=== PATIENT | male | born 1970 | race Two or more races ===

== ENCOUNTER 2016-04-21 10:28 | Inpatient (IN) | payer MEDICARE, MEDICAID ==
[~2016-04-21 10:28] MED LIST: ACETAMINOPHEN500 M4 PO; ANTIBIOTIC PO; ATIVAN1 M2 PO; CALCIUM 500 +1 EAC8 PO; CALCIUM500 M3 PO; CARAFATE1 GM/10 M1 PO; CLEOCIN HCL300 M1 PO; EES PO; FLUOXETINE PO; HUMALOG100 UNITS/ SC; HYDROXYZINE HCL50 M1 PO; IMODIUM A-D2 M3 PO; KEFLEX500 M4 PO; LEVEMIR100 UNITS/ SC; LIPITOR20 M1 PO; LISINOPRIL40 M1 PO; METOPROLOL SUCC50 M1 PO; MUPIROCIN22 G2 TP; NORVASC2.5 M1 PO; NOVASOURCE REN237 ML; NOVOLOG FL100 UNIT/2; NOVOLOG100 UNITS/ SC; NUTREN 2.0250 ML PEG; OLANZAPINE PO; OS-CAL 500+D31 EAC1; OXYCODONE HCL5 M1 PO; PANTOPRAZOLE SO40 M3 PO; PLAVIX75 M1 PO; PROZAC20 M3 PO; RENAL VITAMIN0.8 MG PO; RENVELA; RENVELA800 M1 PO; SCOPOLAMINE; SODIUM BICARBO650 M1 PO; VANCO 500500 MG/100; ZOFRAN4 M2 PO; ZYPREXA; ZYPREXA5 M1 PO; ZYPREXA7.5 M1 PO; [UNRECOGNIZED DRUG - OTHER] PO
[2016-04-21 12:40] LABS: BASO % 0.2 % (0-2); EOS % 0.7 % (0-7); EOSINOPHIL ABSOLUTE COUNT 0.1 tho/cmm (0.0-0.7); HCT-HEMATOCRIT 36.8 % (36.0-53.5); HGB-HEMOGLOBIN 12.2 gm/dl (13.5-17.0); IMMATURE GRANULOCYTES ABSOLUTE 0.13 tho/cmm (0-0.03); IMMATURE GRANULOCYTES PERCENT 0.7 % (0-0.3); LYMPH % 9.2 % (20-45); LYMPH ABSOLUTE COUNT 1.7 tho/cmm (0.8-4.5); MCH (MEAN CORPUSCULAR HGB) 31.7 pg (28.0-32.0); MCHC MEAN CORPUSCULAR HGB CONC 33.2 % (32.0-36.0); MCV (MEAN CELL VOLUME) 95.6 fl (82.0-96.0); MEAN PLATELET VOLUME 9.4 cmc (9.4-12.4); MONO % 5.2 % (0-12); MONOCYTE ABSOLUTE COUNT 0.9 tho/cmm (0.0-1.2); PLATELET COUNT 393 tho/cmm (150-450); RED BLOOD COUNT 3.85 mil/cmm (4.40-5.70); RED CELL DISTRIBUTION WIDTH 14.1 % (12.4-16.4); WHITE BLOOD COUNT 17.9 tho/cmm (4.0-10.0)
[2016-04-21 13:05] LABS: ALB/GLOB RATIO 0.6 (0.8-2.0); ALBUMIN 2.9 g/dl (3.5-5.0); ALKALINE PHOSPHATASE 117 U/L (33-138); ALT/SGPT 11 U/L (12-78); ANION GAP 12 mmol/L (0-20); AST/SGOT 8 U/L (10-40); BILIRUBIN,TOTAL 0.4 mg/dl (0.0-1.5); BLOOD UREA NITROGEN 25 mg/dl (6-24); CALCIUM 8.9 mg/dl (8.5-10.5); CARBON DIOXIDE-VENOUS 30 mmol/L (22-32); CHLORIDE 100 mmol/l (96-110); CREATININE 7.75 mg/dl (0.60-1.30); GLUCOSE 133 mg/dL (70-110); POTASSIUM 3.9 mmol/L (3.7-5.1); PREALBUMIN 20.4 mg/dl (20.0-40.0); SODIUM 138 mmol/L (135-145); eGFR VALUE FOR BLACK 9 mL/Min
[2016-04-21] MEDS ORDERED: OS-CAL 500+D31 EAC1 PO (13:58)
[2016-04-21] MEDS ORDERED: TYLENOL EXTRA500 M1 PO (14:02)
[2016-04-21] MEDS ORDERED: RENVELA800 M1 PO (14:03)
[2016-04-21] MEDS ORDERED: PROMETHAZINE HC25 M3 PO (14:03)
[2016-04-21] MEDS ORDERED: CALCIUM CARBON500 M2 PO (14:04)
[2016-04-21] MEDS ORDERED: REGLAN5 M1 PO (14:15)
[2016-04-21 15:47] LABS: PROTHROMBIN TIME 11.5 SECONDS (9.0-13.6)
[2016-04-21] MEDS ORDERED: ZINC OXIDE30 G1 TP (16:36)
[2016-04-22 05:42] LABS: BASO % 0.3 % (0-2); EOSINOPHIL ABSOLUTE COUNT 0.3 tho/cmm (0.0-0.7); HCT-HEMATOCRIT 34.9 % (36.0-53.5); HGB-HEMOGLOBIN 11.5 gm/dl (13.5-17.0); IMMATURE GRANULOCYTES ABSOLUTE 0.09 tho/cmm (0-0.03); IMMATURE GRANULOCYTES PERCENT 0.6 % (0-0.3); LYMPH % 18.6 % (20-45); LYMPH ABSOLUTE COUNT 2.6 tho/cmm (0.8-4.5); MCH (MEAN CORPUSCULAR HGB) 31.3 pg (28.0-32.0); MCV (MEAN CELL VOLUME) 95.1 fl (82.0-96.0); MEAN PLATELET VOLUME 9.3 cmc (9.4-12.4); MONO % 6.3 % (0-12); MONOCYTE ABSOLUTE COUNT 0.9 tho/cmm (0.0-1.2); NEUTROPHIL ABSOLUTE COUNT 10.1 tho/cmm (1.6-8.0); NEUTROPHIL-AUTOMATED 10.1 tho/cmm (1.6-8.0); NEUTROPHILS % 72.2 % (40-80); PLATELET COUNT 378 tho/cmm (150-450); RED BLOOD COUNT 3.67 mil/cmm (4.40-5.70); RED CELL DISTRIBUTION WIDTH 13.9 % (12.4-16.4)
[2016-04-22 06:04] LABS: ALBUMIN 2.4 g/dl (3.5-5.0); ANION GAP 15 mmol/L (0-20); BLOOD UREA NITROGEN 32 mg/dl (6-24); CALCIUM 8.5 mg/dl (8.5-10.5); CARBON DIOXIDE-VENOUS 29 mmol/L (22-32); CHLORIDE 98 mmol/l (96-110); GLUCOSE 124 mg/dL (70-110); PHOSPHOROUS 5.2 mg/dl (2.5-4.9); POTASSIUM 3.5 mmol/L (3.7-5.1); SODIUM 138 mmol/L (135-145); eGFR VALUE FOR BLACK 7 mL/Min
[2016-04-22 06:06] LABS: CREATININE 9.71 mg/dl (0.60-1.30)
[2016-04-23 05:53] LABS: BASO % 0.3 % (0-2); BASO ABSOLUTE COUNT 0.1 tho/cmm (0.0-0.2); EOS % 1.2 % (0-7); EOSINOPHIL ABSOLUTE COUNT 0.2 tho/cmm (0.0-0.7); HCT-HEMATOCRIT 35.5 % (36.0-53.5); HGB-HEMOGLOBIN 11.7 gm/dl (13.5-17.0); IMMATURE GRANULOCYTES ABSOLUTE 0.09 tho/cmm (0-0.03); IMMATURE GRANULOCYTES PERCENT 0.5 % (0-0.3); LYMPH % 12.2 % (20-45); LYMPH ABSOLUTE COUNT 2.2 tho/cmm (0.8-4.5); MCH (MEAN CORPUSCULAR HGB) 31.1 pg (28.0-32.0); MCV (MEAN CELL VOLUME) 94.4 fl (82.0-96.0); MEAN PLATELET VOLUME 9.1 cmc (9.4-12.4); MONO % 4.1 % (0-12); MONOCYTE ABSOLUTE COUNT 0.7 tho/cmm (0.0-1.2); NEUTROPHIL ABSOLUTE COUNT 14.5 tho/cmm (1.6-8.0); NEUTROPHIL-AUTOMATED 14.5 tho/cmm (1.6-8.0); NEUTROPHILS % 81.7 % (40-80); PLATELET COUNT 348 tho/cmm (150-450); RED BLOOD COUNT 3.76 mil/cmm (4.40-5.70); WHITE BLOOD COUNT 17.8 tho/cmm (4.0-10.0)
[2016-04-23 06:00] LABS: ANION GAP 13 mmol/L (0-20); BLOOD UREA NITROGEN 16 mg/dl (6-24); CALCIUM 8.3 mg/dl (8.5-10.5); CARBON DIOXIDE-VENOUS 28 mmol/L (22-32); CHLORIDE 101 mmol/l (96-110); GLUCOSE 167 mg/dL (70-110); POTASSIUM 3.5 mmol/L (3.7-5.1); SODIUM 138 mmol/L (135-145); eGFR VALUE FOR BLACK 11 mL/Min
[2016-04-23 06:03] LABS: CREATININE 6.28 mg/dl (0.60-1.30)
[2016-04-24 05:43] LABS: BASO % 0.2 % (0-2); EOS % 2.2 % (0-7); EOSINOPHIL ABSOLUTE COUNT 0.4 tho/cmm (0.0-0.7); HCT-HEMATOCRIT 36.5 % (36.0-53.5); HGB-HEMOGLOBIN 12.1 gm/dl (13.5-17.0); IMMATURE GRANULOCYTES ABSOLUTE 0.08 tho/cmm (0-0.03); IMMATURE GRANULOCYTES PERCENT 0.5 % (0-0.3); LYMPH % 13.8 % (20-45); LYMPH ABSOLUTE COUNT 2.2 tho/cmm (0.8-4.5); MCH (MEAN CORPUSCULAR HGB) 31.1 pg (28.0-32.0); MCHC MEAN CORPUSCULAR HGB CONC 33.2 % (32.0-36.0); MCV (MEAN CELL VOLUME) 93.8 fl (82.0-96.0); MEAN PLATELET VOLUME 9.2 cmc (9.4-12.4); MONO % 4.4 % (0-12); MONOCYTE ABSOLUTE COUNT 0.7 tho/cmm (0.0-1.2); NEUTROPHIL ABSOLUTE COUNT 12.6 tho/cmm (1.6-8.0); NEUTROPHIL-AUTOMATED 12.6 tho/cmm (1.6-8.0); NEUTROPHILS % 78.9 % (40-80); PLATELET COUNT 392 tho/cmm (150-450); RED BLOOD COUNT 3.89 mil/cmm (4.40-5.70)
[2016-04-24 06:16] LABS: ALBUMIN 2.6 g/dl (3.5-5.0); ANION GAP 13 mmol/L (0-20); CALCIUM 8.4 mg/dl (8.5-10.5); CARBON DIOXIDE-VENOUS 28 mmol/L (22-32); CHLORIDE 102 mmol/l (96-110); GLUCOSE 176 mg/dL (70-110); POTASSIUM 3.2 mmol/L (3.7-5.1); SODIUM 140 mmol/L (135-145); eGFR VALUE FOR BLACK 8 mL/Min
[2016-04-24 06:47] LABS: BLOOD UREA NITROGEN 28 mg/dl (6-24); CREATININE 8.84 mg/dl (0.60-1.30)
== END 2016-04-24 17:45 | DRG 617 ==
LOC: WCC 10:28 → BURN 11:31
PROVIDERS: Family Medicine; Internal Medicine; Physician Assistant Surgical; ADMIT Surgery
PROC: 0LBW0ZZ Excision of Left Foot Tendon, Open Approach (ICD-10-PCS; 2016-04-21)
PROC: 5A1D60Z (ICD-10-PCS; 2016-04-21)
PROC: 0Y6Y0Z0 Detachment at Left 5th Toe, Complete, Open Approach (ICD-10-PCS; principal; 2016-04-22)
PROC: 0V950ZZ Drainage of Scrotum, Open Approach (ICD-10-PCS; 2016-04-23)
DX: E11.69 Type 2 diabetes mellitus with other specified complication (principal); I12.0 Hypertensive chronic kidney disease with stage 5 chronic kidney disease or end stage renal disease; M31.9 Necrotizing vasculopathy, unspecified; M86.172 Other acute osteomyelitis, left ankle and foot; L97.524 Non-pressure chronic ulcer of other part of left foot with necrosis of bone; K31.84 Gastroparesis; N18.6 End stage renal disease; E11.621 Type 2 diabetes mellitus with foot ulcer; Z79.4 Long term (current) use of insulin; E11.42 Type 2 diabetes mellitus with diabetic polyneuropathy; E11.22 Type 2 diabetes mellitus with diabetic chronic kidney disease; Z99.2 Dependence on renal dialysis; Z87.891 Personal history of nicotine dependence; E78.5 Hyperlipidemia, unspecified; F31.9 Bipolar disorder, unspecified; Z86.73 Personal history of transient ischemic attack (TIA), and cerebral infarction without residual deficits; H53.2 Diplopia; E11.319 Type 2 diabetes mellitus with unspecified diabetic retinopathy without macular edema; E11.649 Type 2 diabetes mellitus with hypoglycemia without coma; Z86.14 Personal history of Methicillin resistant Staphylococcus aureus infection; B95.2 Enterococcus as the cause of diseases classified elsewhere; N49.2 Inflammatory disorders of scrotum; B96.89 Other specified bacterial agents as the cause of diseases classified elsewhere
CPT/HCPCS: C1751; C1769; J0171; J1815; J2250; J2501; J2543; J3370; J7030; J7999; Q9967